=== PATIENT | male | born 1940 | race Caucasian/White ===

== ENCOUNTER 2018-07-31 10:43 | Emergency (ER) | payer MEDICARE, BC ==
[~2018-07-31] VITALS: Ht 188 cm; Wt 103.0 kg
[2018-07-31] MEDS ORDERED: aspirin 81mg tab.chew PO ONE (11:20)
[2018-07-31 12:10] LABS: BASOPHILS % (AUTO) 0.3 % (0-1); EOSINOPHILS # (AUTO) 0.2 X10'3 (0-0.9); EOSINOPHILS % (AUTO) 1.8 % (0-6); HEMATOCRIT 42.7 % (42.0-52.0); HEMOGLOBIN 14.8 g/dl (14.0-17.9); LYMPHOCYTES # (AUTO) 1.5 X10'3 (1.1-4.8); LYMPHOCYTES % (AUTO) 16.8 % (21-51); MEAN CORPUSCULAR HEMOGLOBIN 31.7 PG (27.0-31.0); MEAN CORPUSCULAR HGB CONC 34.6 g/dL (33.0-36.5); MEAN CORPUSCULAR VOLUME 91.8 FL (78-98); MEAN PLATELET VOLUME 9.2 FL (7.4-10.4); MONOCYTES # (AUTO) 0.8 X10'3 (0-0.9); MONOCYTES % (AUTO) 8.7 % (2-12); NEUTROPHILS # (AUTO) 6.4 X10'3 (1.8-7.7); NEUTROPHILS % (AUTO) 72.4 % (42-75); PLATELET COUNT 172 X10'3 (140-440); RED BLOOD COUNT 4.65 X10'6 (4.70-6.10); RED CELL DISTRIBUTION WIDTH 13.2 % (11.5-14.5); WHITE BLOOD COUNT 8.8 X10'3 (4.5-11.0)
[2018-07-31 12:29] LABS: ALANINE AMINOTRANSFERASE 31 U/L (12-78); ALBUMIN 3.7 G/DL (3.4-5.0); ALBUMIN/GLOBULIN RATIO 1.2 (1.1-1.5); ALKALINE PHOSPHATASE 64 IU/L (46-116); ANION GAP 7 (8-16); ASPARTATE AMINO TRANSFERASE 26 U/L (10-37); BILIRUBIN,TOTAL 0.8 MG/DL (0.1-1.0); BLOOD UREA NITROGEN 39 MG/DL (7-18); BUN/CREATININE RATIO 17.1 (5.4-32.0); CALCIUM 9.9 MG/DL (8.5-10.1); CHLORIDE 103 MMOL/L (99-107); CREATININE 2.28 MG/DL (0.60-1.10); GLUCOSE 145 MG/DL (70-104); POTASSIUM 4.3 MMOL/L (3.5-5.1); SODIUM 140 MMOL/L (135-145); TOTAL CARBON DIOXIDE 29.6 MMOL/L (24-32); TOTAL PROTEIN 6.8 G/DL (6.4-8.2); eGFR 28 ML/MIN
[2018-07-31 12:35] LABS: MAGNESIUM 1.8 MG/DL (1.5-2.4)
[2018-07-31] MEDS ORDERED: diltiazem 5mg/ml 5ml inj. IV ONE (15:25)
[2018-07-31] MEDS ORDERED: nitroGLYCERIN 0.2mg/hour patch TD ONE (15:50)
[2018-07-31] MEDS ORDERED: HYDR12.5 PO (16:55)
[2018-07-31] MEDS ORDERED: GABA-532 PO (16:55)
[2018-07-31] MEDS ORDERED: PRAV40TA3 PO (16:55)
[2018-07-31] MEDS ORDERED: IRBE300T19 PO (16:55)
[2018-07-31] MEDS ORDERED: MONT10TA24 PO (16:55)
[2018-07-31] MEDS ORDERED: SOTA120T PO (16:55)
[2018-07-31] MEDS ORDERED: DOXA1TAB2 PO (16:55)
[2018-07-31] MEDS ORDERED: mag hydrox/Alum hydrox/simeth 30ml oral suspension PO PRN (17:45)
[2018-07-31] MEDS ORDERED: potassium Cl 20 mEq SR tablet PO PRN ×2 (17:45)
[2018-07-31] MEDS ORDERED: potassium Cl 40MEQ/NS 500ml 500 ML IV PRN ×2 (17:45)
[2018-07-31] MEDS ORDERED: ondansetron/PF 4mg/2ml inj IV PRN (17:45)
[2018-07-31] MEDS ORDERED: acetaminophen 325mg tablet PO PRN (17:45)
[2018-07-31] MEDS ORDERED: magnesium 4gm in 100ml NS 100 ML IV PRN (17:45)
[2018-07-31] MEDS ORDERED: magnesium 2GM in 50ml NS 50 ML IV PRN (17:45)
[2018-07-31] MEDS ORDERED: magnesium Cl slow-release 64mg tablet PO PRN (17:45)
[2018-07-31] MEDS ORDERED: gabapentin 300mg capsule PO PRN (17:45)
[2018-07-31] MEDS: montelukast 10mg tablet PO SCH (17:45)
[2018-07-31] MEDS ORDERED: magnesium hydroxide 30ml (MOM) UD suspension PO PRN (17:45)
[2018-07-31] MEDS ORDERED: MESSAGE TO PHARMACY PO ONE (18:25)
[2018-07-31] MEDS ORDERED: dextrose 50%-water 50ml dispensing syringe IV PRN ×2 (18:25)
[2018-07-31] MEDS ORDERED: glucagon, human recombinant 1mg kit SUBCUT PRN (18:25)
[2018-07-31] MEDS ORDERED: insulin Lispro (HumaLOG) vial - multi-dose SQ SCH (18:25)
[2018-07-31] MEDS ORDERED: dextrose ORAL solution 15 GM/59 ML bottle PO PRN ×2 (18:25)
[2018-07-31] MEDS ORDERED: iohexol 350MG/ML 100ml bottle IV ONE (18:52)
[2018-07-31 19:21] LABS: HEMOGLOBIN A1C 7.1 % (4.5-6.2)
[2018-07-31] MEDS: normal saline 1000ml 1,000 ML IV SCH (19:24)
[2018-07-31] MEDS ORDERED: heparin, porcine 5000 units/ml vial SQ SCH (20:00)
[2018-07-31] MEDS: sotalol 80mg tablet PO SCH (20:42)
[2018-07-31] MEDS: doxazosin mesylate 2mg tablet PO SCH (20:42)
[2018-07-31] MEDS ORDERED: insulin glargine (Lantus) pen - multi-dose SQ SCH (21:00)
[2018-07-31] MEDS ORDERED: dabigatran 150mg capsule PO ONE (21:15)
[2018-08-01] MEDS: normal saline 1000ml 1,000 ML IV SCH (04:25)
[2018-08-01] MEDS: montelukast 10mg tablet PO SCH (08:00)
[2018-08-01] MEDS ORDERED: dabigatran 150mg capsule PO ONE (08:00)
[2018-08-01] MEDS ORDERED: K and/or MAG REPLACEMENT MC SCH (08:00)
[2018-08-01] MEDS ORDERED: pravastatin 40mg tablet PO SCH (08:00)
[2018-08-01 08:45] LABS: BASOPHILS % (AUTO) 0.5 % (0-1); EOSINOPHILS # (AUTO) 0.1 X10'3 (0-0.9); EOSINOPHILS % (AUTO) 1.5 % (0-6); HEMATOCRIT 43.5 % (42.0-52.0); HEMOGLOBIN 14.3 g/dl (14.0-17.9); LYMPHOCYTES # (AUTO) 1.3 X10'3 (1.1-4.8); LYMPHOCYTES % (AUTO) 15.4 % (21-51); MEAN CORPUSCULAR HEMOGLOBIN 30.5 PG (27.0-31.0); MEAN CORPUSCULAR HGB CONC 32.8 g/dL (33.0-36.5); MEAN CORPUSCULAR VOLUME 93.1 FL (78-98); MEAN PLATELET VOLUME 9.3 FL (7.4-10.4); MONOCYTES # (AUTO) 0.7 X10'3 (0-0.9); MONOCYTES % (AUTO) 7.7 % (2-12); NEUTROPHILS # (AUTO) 6.6 X10'3 (1.8-7.7); NEUTROPHILS % (AUTO) 74.9 % (42-75); PLATELET COUNT 171 X10'3 (140-440); RED BLOOD COUNT 4.68 X10'6 (4.70-6.10); RED CELL DISTRIBUTION WIDTH 12.3 % (11.5-14.5); WHITE BLOOD COUNT 8.7 X10'3 (4.5-11.0)
[2018-08-01 09:11] LABS: ALANINE AMINOTRANSFERASE 30 U/L (12-78); ALBUMIN 3.5 G/DL (3.4-5.0); ALBUMIN/GLOBULIN RATIO 1.1 (1.1-1.5); ALKALINE PHOSPHATASE 60 IU/L (46-116); ANION GAP 10 (8-16); ASPARTATE AMINO TRANSFERASE 22 U/L (10-37); BILIRUBIN,TOTAL 0.7 MG/DL (0.1-1.0); BLOOD UREA NITROGEN 39 MG/DL (7-18); BUN/CREATININE RATIO 19.2 (5.4-32.0); CALCIUM 9.2 MG/DL (8.5-10.1); CHLORIDE 102 MMOL/L (99-107); CHOL/HDL RATIO 4.1 (0.00-4.99); CHOLESTEROL 119 MG/DL (0-200); CREATININE 2.03 MG/DL (0.60-1.10); GLUCOSE 151 MG/DL (70-104); HDL CHOLESTEROL 29 MG/DL (35-60); LDL CHOLESTEROL 71 MG/DL (50-100); MAGNESIUM 1.7 MG/DL (1.5-2.4); POTASSIUM 4.2 MMOL/L (3.5-5.1); SODIUM 137 MMOL/L (135-145); TOTAL CARBON DIOXIDE 25.3 MMOL/L (24-32); TOTAL PROTEIN 6.6 G/DL (6.4-8.2); TRIGLYCERIDES 175 MG/DL (20-135); eGFR 32 ML/MIN
--- NOTE | 2018-08-01 09:26 | NUR ---
CALLED TO GIVE REPORT INFORMED BY SANTHOSH WEI TO HOLD ON THIS PT PER NSG SUP
[2018-08-01] MEDS: sotalol 80mg tablet PO SCH (10:17)
[2018-08-01] MEDS: doxazosin mesylate 2mg tablet PO SCH (10:18)
[2018-08-01 10:56] VITALS: BP 115/76
--- NOTE | 2018-08-01 13:12 | NUR ---
PT MOVED FROM BED 10 TO RAP WAITING ROOM ZANE STATES PT TO BE DISCHARGED.
== END 2018-08-01 14:10 | disposition home or self-care (01) ==
LOC: ER 10:44 → ED HOLD 17:41 → UNDOADMIN 17:41 → CANBEDREQ 08-04 19:54
DX: R07.89 Other chest pain (principal); I48.0 Paroxysmal atrial fibrillation; M54.6 Pain in thoracic spine; R42 Dizziness and giddiness; I95.89 Other hypotension; I10 Essential (primary) hypertension; E11.9 Type 2 diabetes mellitus without complications; Z98.890 Other specified postprocedural states; Z85.46 Personal history of malignant neoplasm of prostate; Z79.899 Other long term (current) drug therapy
CPT/HCPCS: 36415; 71045; 71275; 74174; 80053; 80061; 82948; 83036; 83735; 83880; 84484; 85025; 93005; 93306; 96361; 96374; 99285; J7030; Q9967; G0378; J1815; J3490

== ENCOUNTER 2023-01-10 23:56 | Emergency (ER) | payer MEDICARE, BC ==
[~2023-01-10] VITALS: Ht 182.9 cm; Wt 95.0 kg
[~2023-01-10 23:56] MED LIST: DOXA1TAB2 PO; GABA-532 PO; IRBE300T18 PO; PRAV40TA3 PO; SOTA120T PO
[2023-01-11 00:12] VITALS: BP 167/78; PULSE 71; TEMP 96; O2SAT 96
[2023-01-11 00:46] VITALS: RESP 16
== END 2023-01-11 01:42 | disposition home or self-care (01) ==
LOC: ER 23:56
DX: E11.65 Type 2 diabetes mellitus with hyperglycemia (principal); I10 Essential (primary) hypertension; Z79.899 Other long term (current) drug therapy
CPT/HCPCS: 82948; 99282

== ENCOUNTER 2023-03-04 23:50 | Inpatient (IN) | payer MEDICARE, BC ==
[~2023-03-04] VITALS: Ht 188 cm; Wt 88.6 kg
[2023-03-05] VITALS (8 sets, daily range): BP systolic 96–136; BP diastolic 53–86; PULSE 76–99; RESP 16–20; TEMP 97.8–98.4; O2SAT 95–97
[2023-03-05 01:50] LABS: BASOPHILS # (AUTO) 0.1 X10'3 (0-0.2); BASOPHILS % (AUTO) 0.8 % (0-1); EOSINOPHILS # (AUTO) 0.1 X10'3 (0-0.9); EOSINOPHILS % (AUTO) 1.5 % (0-6); HEMATOCRIT 36.2 % (42.0-52.0); HEMOGLOBIN 11.9 g/dl (14.0-17.9); LYMPHOCYTES # (AUTO) 1.2 X10'3 (1.1-4.8); LYMPHOCYTES % (AUTO) 14.2 % (21-51); MEAN CORPUSCULAR HEMOGLOBIN 31.1 PG (27.0-31.0); MEAN CORPUSCULAR HGB CONC 32.8 g/dL (33.0-36.5); MEAN CORPUSCULAR VOLUME 94.6 FL (78-98); MEAN PLATELET VOLUME 8.6 FL (7.4-10.4); MONOCYTES # (AUTO) 0.7 X10'3 (0-0.9); MONOCYTES % (AUTO) 8.4 % (2-12); NEUTROPHILS # (AUTO) 6.4 X10'3 (1.8-7.7); NEUTROPHILS % (AUTO) 75.1 % (42-75); PLATELET COUNT 159 X10'3 (140-440); RED BLOOD COUNT 3.83 X10'6 (4.70-6.10); WHITE BLOOD COUNT 8.6 X10'3 (4.5-11.0)
[2023-03-05 01:58] LABS: ALANINE AMINOTRANSFERASE 26 U/L (12-78); ALBUMIN 3.3 G/DL (3.4-5.0); ALBUMIN/GLOBULIN RATIO 1.3 (1.1-1.5); ALKALINE PHOSPHATASE 62 IU/L (46-116); ANION GAP 10 (8-16); ASPARTATE AMINO TRANSFERASE 16 U/L (10-37); BILIRUBIN,TOTAL 0.3 MG/DL (0.1-1.0); BLOOD UREA NITROGEN 41 MG/DL (7-18); BUN/CREATININE RATIO 20.3 (10.0-20.0); CALCIUM 9.3 MG/DL (8.5-10.1); CHLORIDE 106 MMOL/L (99-107); CREATININE 2.02 MG/DL (0.60-1.10); GLUCOSE 201 MG/DL (70-104); POTASSIUM 4.7 MMOL/L (3.5-5.1); SODIUM 140 MMOL/L (135-145); TOTAL CARBON DIOXIDE 24.5 MMOL/L (24-32); TOTAL PROTEIN 5.8 G/DL (6.4-8.2); eCRCL 34 ML/MIN; eGFR 32 ML/MIN
[2023-03-05] MEDS ORDERED: KCentra-PCC 500 unit/20mL vial 0 ML IV ONE (02:15)
[2023-03-05] MEDS ORDERED: KCENTRA PCC 500 UNIT/20 ML IV ONE (02:30)
[2023-03-05] MEDS ORDERED: normal saline 1000ML IV soln IVB ONE (03:30)
[2023-03-05] MEDS ORDERED: bisacodyl 10mg suppository rectal RC PRN (04:45)
[2023-03-05] MEDS ORDERED: ondansetron 4mg rapidly disintigrating tab PO PRN (04:45)
[2023-03-05] MEDS ORDERED: magnesium hydroxide 30ml (MOM) UD suspension PO PRN (04:45)
[2023-03-05] MEDS ORDERED: acetaminophen 325mg tablet PO PRN ×2 (04:45)
[2023-03-05] MEDS ORDERED: ondansetron/PF 4mg/2ml inj IV PRN (04:45)
[2023-03-05] MEDS ORDERED: HYDROcodone/acetaminophen 5mg/325mg tablet PO PRN (04:45)
[2023-03-05] MEDS ORDERED: acetaminophen 650mg rectal suppository RC PRN (04:45)
[2023-03-05] MEDS ORDERED: morphine 2 MG/ML inj. syringe IV PRN (04:45)
[2023-03-05] MEDS ORDERED: diphenhydrAMINE 50 mg/ml inj IV PRN (04:45)
[2023-03-05] MEDS ORDERED: diphenhydrAMINE 25mg capsule PO PRN (04:45)
[2023-03-05] MEDS ORDERED: mag hydrox/Alum hydrox/simeth 30ml oral suspension PO PRN (04:45)
[2023-03-05] MEDS ORDERED: MESSAGE TO PHARMACY PO ONE (04:50)
[2023-03-05] MEDS ORDERED: tranexamic acid inj. 1,000 MG in normal saline 100ml IV soln 100 ML IV ONE (04:50)
[2023-03-05] MEDS ORDERED: dextrose 50%-water 50ml dispensing syringe IV PRN ×2 (04:50)
[2023-03-05] MEDS ORDERED: DEXTROSE 15 GM of carb/4 tabs (each vial/BOTTLE has 4 tablets) PO PRN ×2 (04:50)
[2023-03-05] MEDS ORDERED: glucagon, human recombinant 1mg kit SUBCUT PRN (04:50)
[2023-03-05] MEDS ORDERED: ringers solution, lacted 1,000 ML IV ONE (04:50)
[2023-03-05] MEDS ORDERED: insulin Lispro (HumaLOG) vial - multi-dose SQ SCH (04:50)
[2023-03-05 05:09] LABS: OCCULT BLOOD STOOL POSITIVE (Neg)
[2023-03-05 05:11] LABS: APTT 27 SECONDS (22-32)
[2023-03-05 05:13] LABS: HEMOGLOBIN A1C 6.5 % (4.5-6.2)
[2023-03-05 05:23] LABS: MAGNESIUM 1.8 MG/DL (1.5-2.4); PHOSPHORUS 3.1 MG/DL (2.3-4.5); PRO BRAIN NATRIURETIC PEPTIDE 73 PG/ML (0-450)
[2023-03-05] MEDS ORDERED: tranexamic acid inj. 1,000 MG in normal saline 100ml IV soln 90 ML IV ONE (05:38)
[2023-03-05] MEDS: pantoprazole 40MG/NS 100ML BAG 100 ML IV SCH ×5 (07:54→22:03)
[2023-03-05] MEDS: docusate sod 100mg capsule PO SCH ×2 (07:54→20:00)
--- NOTE | 2023-03-05 08:08 | NUR ---
Primary RN relieved for break.
--- NOTE | 2023-03-05 09:33 | NUR ---
paged dr boyer at this time to clarify the orders .
--- NOTE | 2023-03-05 09:34 | NUR ---
spoke to dr boyer regarding pt concern about contacting caustic preparer for recent visit as per md its not needed,clarified the diet orders ,as per md keep npo and also correct the bld sugar with correctional tool.will follow the orders.
--- NOTE | 2023-03-05 10:49 | NUR ---
was going to correct the pt b.s checked the bld sugar with glucometer b.s 112.no insulin needed.
--- NOTE | 2023-03-05 13:06 | NUR ---
Assumed care of patient, updated plan of care with family, vital signs stable at this time and denies additional needs.
[2023-03-05] MEDS ORDERED: MONT-40 PO (13:53)
[2023-03-05] MEDS ORDERED: DULA1.5P SQ (13:53)
[2023-03-05] MEDS ORDERED: CARV3.1244 PO (13:53)
[2023-03-05] MEDS ORDERED: KETO120S5 TOP (13:53)
[2023-03-05] MEDS ORDERED: IRBE75TA8 PO (13:53)
[2023-03-05] MEDS ORDERED: AMI200T PO (13:53)
[2023-03-05] MEDS ORDERED: APIX5TAB3 PO (13:53)
[2023-03-05] MEDS ORDERED: GABA300C PO (13:53)
[2023-03-05] MEDS ORDERED: ROSU10TA28 PO (13:53)
[2023-03-05] MEDS ORDERED: ASPI-611 PO (13:54)
--- NOTE | 2023-03-05 15:17 | NUR ---
Patient in room PCU 3026. I have received report from Sharita WEI and had the opportunity to ask questions and awaiting patients arrival
--- NOTE | 2023-03-05 15:43 | NUR ---
DM consult: Per EMR pt with T2DM, well controlled with A1c 6.5%, DM education and CHO controlled diet not warranted. Will continue to follow. Addendum: 03/05/23 at [address] Amended: Links added.
--- NOTE | 2023-03-05 15:45 | NUR ---
Received patient to floor in stable condition. No more bloody stools observed at this time. Orientated to room. Spouse present.
[2023-03-05] MEDS ORDERED: metroNIDAZOLE-Flagyl 500mg/NS 100 ML IV SCH (17:08)
[2023-03-05] MEDS ORDERED: ciprofloxacin/D5W 200mg/100mL 100 ML IV SCH (17:12)
--- NOTE | 2023-03-05 18:24 | NUR ---
patient commenced on heart healthy diet . No c/o abdominal pain, states just feels uncomfortable . Report given to Barbi WEI
--- NOTE | 2023-03-05 18:30 | NUR ---
Patient in room PCU 3026. I have received report from SANJUANA Lerner and had the opportunity to ask questions and assume patient care.
[2023-03-05] MEDS: carVEDilol 3.125mg tablet PO SCH ×2 (20:00→22:00)
[2023-03-05] MEDS: doxazosin mesylate 2mg tablet PO SCH (20:00)
[2023-03-05] MEDS: metroNIDAZOLE-Flagyl 500mg/NS 100 ML IV SCH (20:04)
[2023-03-05] MEDS ORDERED: gabapentin 300mg capsule PO SCH (21:00)
[2023-03-05] MEDS ORDERED: atorvastatin 20mg tablet PO SCH (21:00)
[2023-03-05] MEDS ORDERED: temazepam 15mg capsule PO PRN (21:00)
[2023-03-06 02:00] VITALS: BP 122/70; PULSE 86; RESP 16; TEMP 97.3; O2SAT 95
[2023-03-06] MEDS: metroNIDAZOLE-Flagyl 500mg/NS 100 ML IV SCH ×2 (04:01→12:00)
[2023-03-06 06:00] VITALS: BP 161/77; PULSE 85; RESP 12; TEMP 97.8; O2SAT 98
[2023-03-06] MEDS: pantoprazole 40MG/NS 100ML BAG 100 ML IV SCH ×2 (06:03→11:00)
--- NOTE | 2023-03-06 06:29 | NUR ---
Problems reprioritized. Patient report given, questions answered & plan of care reviewed with SANJUANA Marks.
--- NOTE | 2023-03-06 06:54 | NUR ---
Patient in room PCU 3026. I have received report from SANJUANA Landon and had the opportunity to ask questions and assume patient care.
[2023-03-06 07:56] VITALS: RESP 19; O2SAT 98
[2023-03-06] MEDS ORDERED: losartan 25mg tablet PO SCH (08:00)
[2023-03-06] MEDS ORDERED: montelukast 10mg tablet PO SCH (08:00)
[2023-03-06] MEDS ORDERED: ketoconazole (Nizoral) shampoo TP SCH (08:00)
[2023-03-06] MEDS: doxazosin mesylate 2mg tablet PO SCH (08:00)
[2023-03-06] MEDS ORDERED: amiodarone 200mg tablet PO SCH (08:00)
[2023-03-06] MEDS: docusate sod 100mg capsule PO SCH (08:01)
[2023-03-06] MEDS: carVEDilol 3.125mg tablet PO SCH (08:02)
[2023-03-06 08:22] LABS: BASOPHILS # (AUTO) 0.1 X10'3 (0-0.2); BASOPHILS % (AUTO) 0.7 % (0-1); EOSINOPHILS # (AUTO) 0.2 X10'3 (0-0.9); EOSINOPHILS % (AUTO) 1.9 % (0-6); HEMATOCRIT 36.2 % (42.0-52.0); HEMOGLOBIN 12.1 g/dl (14.0-17.9); LYMPHOCYTES # (AUTO) 1.6 X10'3 (1.1-4.8); MEAN CORPUSCULAR HEMOGLOBIN 31.6 PG (27.0-31.0); MEAN CORPUSCULAR HGB CONC 33.3 g/dL (33.0-36.5); MEAN CORPUSCULAR VOLUME 94.8 FL (78-98); MEAN PLATELET VOLUME 8.9 FL (7.4-10.4); MONOCYTES # (AUTO) 0.8 X10'3 (0-0.9); MONOCYTES % (AUTO) 8.8 % (2-12); NEUTROPHILS # (AUTO) 6.3 X10'3 (1.8-7.7); NEUTROPHILS % (AUTO) 70.6 % (42-75); PLATELET COUNT 158 X10'3 (140-440); RED BLOOD COUNT 3.82 X10'6 (4.70-6.10); RED CELL DISTRIBUTION WIDTH 15.6 % (11.5-14.5)
[2023-03-06 08:49] LABS: ALANINE AMINOTRANSFERASE 27 U/L (12-78); ALBUMIN 3.4 G/DL (3.4-5.0); ALBUMIN/GLOBULIN RATIO 1.3 (1.1-1.5); ALKALINE PHOSPHATASE 59 IU/L (46-116); ANION GAP 9 (8-16); ASPARTATE AMINO TRANSFERASE 15 U/L (10-37); BILIRUBIN,TOTAL 0.6 MG/DL (0.1-1.0); BLOOD UREA NITROGEN 30 MG/DL (7-18); BUN/CREATININE RATIO 17.6 (10.0-20.0); CALCIUM 9.6 MG/DL (8.5-10.1); CHLORIDE 107 MMOL/L (99-107); CHOL/HDL RATIO 3.3 (0.00-4.99); CHOLESTEROL 121 MG/DL (0-200); GLUCOSE 120 MG/DL (70-104); HDL CHOLESTEROL 37 MG/DL (35-60); LDL CHOLESTEROL 60 MG/DL (50-100); POTASSIUM 4.8 MMOL/L (3.5-5.1); SODIUM 141 MMOL/L (135-145); TOTAL CARBON DIOXIDE 24.6 MMOL/L (24-32); TRIGLYCERIDES 137 MG/DL (20-135); eCRCL 40 ML/MIN; eGFR 39 ML/MIN
[2023-03-06] MEDS ORDERED: METR-159 PO (09:54)
[2023-03-06] MEDS ORDERED: CIPR-202 PO ×2 (09:54)
[2023-03-06] MEDS ORDERED: SACC250C PO (09:54)
[2023-03-06] MEDS ORDERED: CIPR-429 PO (09:59)
[2023-03-06 11:00] VITALS: BP 100/62; PULSE 85; RESP 19; TEMP 98.2; O2SAT 98
--- NOTE | 2023-03-06 12:57 | NUR ---
Patient alert and oriented in no apparent acute distress. Patient spouse at bedside. Discussed with patient and spouse discharge instructions and new prescriptions. Both verbalized understanding of teachings. Patient dc'd with all personal belongings accompanied by x1 auxilary staff and spouse. Dr. Ardon in to see patient to speak about when to resume eliquis prior to dc.
== END 2023-03-06 13:25 | disposition home or self-care (01) | DRG 377 ==
LOC: ER 23:51 → ED HOLD 03-05 04:48 → PCU 3S 03-05 15:13
PROVIDERS: ADMIT Family Medicine; ATTEND Family Medicine
PROC: 30233N1 Transfusion of Nonautologous Red Blood Cells into Peripheral Vein, Percutaneous Approach (ICD-10-PCS; principal; 2023-03-05)
DX: K57.91 Diverticulosis of intestine, part unspecified, without perforation or abscess with bleeding (principal); N17.0 Acute kidney failure with tubular necrosis; I13.0 Hypertensive heart and chronic kidney disease with heart failure and stage 1 through stage 4 chronic kidney disease, or unspecified chronic kidney disease; I50.32 Chronic diastolic (congestive) heart failure; E11.22 Type 2 diabetes mellitus with diabetic chronic kidney disease; E11.42 Type 2 diabetes mellitus with diabetic polyneuropathy; E11.65 Type 2 diabetes mellitus with hyperglycemia; G89.4 Chronic pain syndrome; I25.10 Atherosclerotic heart disease of native coronary artery without angina pectoris; E78.5 Hyperlipidemia, unspecified; I48.91 Unspecified atrial fibrillation; N18.9 Chronic kidney disease, unspecified; Z79.01 Long term (current) use of anticoagulants; Z79.82 Long term (current) use of aspirin; Z79.84 Long term (current) use of oral hypoglycemic drugs; Z85.46 Personal history of malignant neoplasm of prostate
CPT/HCPCS: 36415; 36430; 74176; 80053; 80061; 82272; 82948; 83036; 83605; 83735; 83880; 84100; 84484; 85025; 85610; 85730; 86885; 86900; 86901; 86920; 87081; 93005; 96361; 96374; 99291; C9113; G0378; J0744; J3490; J7030; J7040; J7120; J7168; P9016

== ENCOUNTER 2023-07-18 23:52 | Emergency (ER) | payer MEDICARE, BC ==
[~2023-07-18] VITALS: Ht 188 cm; Wt 88.2 kg
[~2023-07-18 23:52] MED LIST changes: +AMI200T PO; +APIX5TAB3 PO; +ASPI-611 PO; +CARV3.1244 PO; +CIPR-429 PO; +DULA1.5P SQ; -GABA-532 PO; +GABA300C PO; -IRBE300T18 PO; +IRBE75TA15 PO; +KETO120S5 TOP; +METR-159 PO; +MONT-40 PO; -PRAV40TA3 PO; +ROSU10TA28 PO; +SACC250C PO; -SOTA120T PO
[2023-07-19 00:06] VITALS: TEMP 98.7
[2023-07-19 00:59] LABS: BILIRUBIN,URINE NEGATIVE (Neg); CLARITY,URINE SLIGHTLY CLOUDY (Clear); COLOR,URINE YELLOW (Yellow); GLUCOSE, URINE NEGATIVE (Neg); KETONES,URINE NEGATIVE (Neg); LEUKOCYTE ESTERASE ,URINE MODERATE (Neg); NITRITES, URINE NEGATIVE (Neg); OCCULT BLOOD,URINE SMALL (Neg); PROTEIN,URINE NEGATIVE (Neg); UROBILINOGEN,URINE 0.2 E.U/dL (0.2-1.0)
[2023-07-19 01:01] LABS: UA COLLECTION TYPE NON-SPECIFIED
[2023-07-19 01:07] LABS: BACTERIA,URINE 2+ /HPF (Neg)
[2023-07-19 01:08] LABS: SQUAMOUS EPITHELIAL CELL,UR FEW /LPF (FEW)
[2023-07-19] MEDS ORDERED: CEPH-585 PO (01:29)
[2023-07-19] MEDS ORDERED: CefTRIAXone 1000mg IM Kit (w/lidocaine diluent) IM ONE (01:30)
[2023-07-19] MEDS ORDERED: PHEN-786 PO (01:58)
[2023-07-19] MEDS ORDERED: phenazopyridine 100mg tablet PO ONE (02:00)
[2023-07-19 02:32] VITALS: BP 129/75; PULSE 76; RESP 16; O2SAT 95
== END 2023-07-19 02:37 | disposition home or self-care (01) ==
LOC: ER 23:53
DX: N39.0 Urinary tract infection, site not specified (principal); I11.0 Hypertensive heart disease with heart failure; Z79.899 Other long term (current) drug therapy
CPT/HCPCS: 81001; 87077; 87088; 87186; 96372; 99283; J0696

== ENCOUNTER 2023-12-11 11:59 | Emergency (ER) | payer MEDICARE, BC ==
[~2023-12-11] VITALS: Ht 188 cm; Wt 86.0 kg
[~2023-12-11 11:59] MED LIST changes: +PHEN-786 PO
[2023-12-11 12:04] VITALS: TEMP 98
[2023-12-11 12:58] LABS: BASOPHILS # (AUTO) 0.1 X10'3 (0-0.2); BASOPHILS % (AUTO) 0.7 % (0-1); EOSINOPHILS # (AUTO) 0.1 X10'3 (0-0.9); EOSINOPHILS % (AUTO) 1.1 % (0-6); HEMATOCRIT 42.3 % (42.0-52.0); HEMOGLOBIN 13.9 g/dl (14.0-17.9); LYMPHOCYTES # (AUTO) 0.9 X10'3 (1.1-4.8); LYMPHOCYTES % (AUTO) 11.2 % (21-51); MEAN CORPUSCULAR HEMOGLOBIN 30.5 PG (27.0-31.0); MEAN CORPUSCULAR HGB CONC 32.9 g/dL (33.0-36.5); MEAN CORPUSCULAR VOLUME 92.8 FL (78-98); MEAN PLATELET VOLUME 8.8 FL (7.4-10.4); MONOCYTES # (AUTO) 0.7 X10'3 (0-0.9); MONOCYTES % (AUTO) 8.8 % (2-12); NEUTROPHILS # (AUTO) 6.5 X10'3 (1.8-7.7); NEUTROPHILS % (AUTO) 78.2 % (42-75); PLATELET COUNT 172 X10'3 (140-440); RED BLOOD COUNT 4.56 X10'6 (4.70-6.10); RED CELL DISTRIBUTION WIDTH 15.1 % (11.5-14.5); WHITE BLOOD COUNT 8.3 X10'3 (4.5-11.0)
[2023-12-11 13:21] LABS: ALANINE AMINOTRANSFERASE 32 U/L (12-78); ALBUMIN 3.3 G/DL (3.4-5.0); ALKALINE PHOSPHATASE 72 IU/L (46-116); ANION GAP 6 (8-16); ASPARTATE AMINO TRANSFERASE 14 U/L (10-37); BILIRUBIN,TOTAL 0.5 MG/DL (0.1-1.0); BLOOD UREA NITROGEN 20 MG/DL (7-18); BUN/CREATININE RATIO 13.1 (10.0-20.0); CALCIUM 9.3 MG/DL (8.5-10.1); CHLORIDE 105 MMOL/L (99-107); CREATININE 1.53 MG/DL (0.60-1.10); GLUCOSE 118 MG/DL (70-104); LIPASE 40 U/L (16-77); POTASSIUM 4.3 MMOL/L (3.5-5.1); SODIUM 139 MMOL/L (135-145); TOTAL CARBON DIOXIDE 27.6 MMOL/L (24-32); TOTAL PROTEIN 6.5 G/DL (6.4-8.2); eCRCL 44 ML/MIN; eGFR 44 ML/MIN
[2023-12-11 14:15] VITALS: BP 109/66; PULSE 61; RESP 16; O2SAT 96
[2023-12-11] MEDS ORDERED: METR-159 PO (14:24)
[2023-12-11] MEDS ORDERED: LEVO-65 PO (14:24)
[2023-12-11 14:30] LABS: BILIRUBIN,URINE NEGATIVE (Neg); CLARITY,URINE CLEAR (Clear); COLOR,URINE STRAW (Yellow); GLUCOSE, URINE NEGATIVE (Neg); KETONES,URINE NEGATIVE (Neg); LEUKOCYTE ESTERASE ,URINE NEGATIVE (Neg); NITRITES, URINE NEGATIVE (Neg); OCCULT BLOOD,URINE TRACE-INTACT (Neg); PH,URINE 6.5 (4.8-8.0); PROTEIN,URINE NEGATIVE (Neg); UROBILINOGEN,URINE 0.2 E.U/dL (0.2-1.0)
[2023-12-11 14:31] LABS: UA COLLECTION TYPE VOIDED
[2023-12-11 14:40] LABS: RBC,URINE NONE SEEN /HPF (0-2); WBC,URINE NONE SEEN /HPF (0-4)
[2023-12-11 14:41] LABS: BACTERIA,URINE NONE SEEN /HPF (Neg); MUCUS STRANDS NONE SEEN /LPF (Neg); SQUAMOUS EPITHELIAL CELL,UR FEW /LPF (FEW)
== END 2023-12-11 14:37 | disposition home or self-care (01) ==
LOC: ER 11:59
DX: K57.32 Diverticulitis of large intestine without perforation or abscess without bleeding (principal); I48.91 Unspecified atrial fibrillation; I10 Essential (primary) hypertension; E11.9 Type 2 diabetes mellitus without complications; Z79.82 Long term (current) use of aspirin; Z79.2 Long term (current) use of antibiotics; Z79.899 Other long term (current) drug therapy; Z98.890 Other specified postprocedural states; Z85.9 Personal history of malignant neoplasm, unspecified
CPT/HCPCS: 36415; 74176; 80053; 81001; 83690; 85025; 99284

== ENCOUNTER 2024-03-17 13:32 | Emergency (ER) | payer MEDICARE, BC ==
[~2024-03-17] VITALS: Ht 188 cm; Wt 84.0 kg
[~2024-03-17 13:32] MED LIST changes: -ROSU10TA28 PO; +ROSU10TA72 PO
[2024-03-17 13:33] VITALS: BP 150/61; PULSE 63; RESP 16; TEMP 98.2; O2SAT 95
[2024-03-17 14:13] LABS: BASOPHILS # (AUTO) 0.1 X10'3 (0-0.2); BASOPHILS % (AUTO) 0.5 % (0-1); EOSINOPHILS # (AUTO) 0.1 X10'3 (0-0.9); EOSINOPHILS % (AUTO) 0.8 % (0-6); HEMOGLOBIN 14.5 g/dl (14.0-17.9); LYMPHOCYTES # (AUTO) 1.2 X10'3 (1.1-4.8); LYMPHOCYTES % (AUTO) 11.7 % (21-51); MEAN CORPUSCULAR HEMOGLOBIN 31.2 PG (27.0-31.0); MEAN CORPUSCULAR HGB CONC 32.8 g/dL (33.0-36.5); MEAN CORPUSCULAR VOLUME 95.1 FL (78-98); MEAN PLATELET VOLUME 9.2 FL (7.4-10.4); MONOCYTES # (AUTO) 0.6 X10'3 (0-0.9); MONOCYTES % (AUTO) 6.5 % (2-12); NEUTROPHILS % (AUTO) 80.5 % (42-75); PLATELET COUNT 172 X10'3 (140-440); RED BLOOD COUNT 4.62 X10'6 (4.70-6.10); RED CELL DISTRIBUTION WIDTH 14.8 % (11.5-14.5); WHITE BLOOD COUNT 9.9 X10'3 (4.5-11.0)
[2024-03-17 14:27] LABS: ALANINE AMINOTRANSFERASE 25 U/L (12-78); ALBUMIN 3.5 G/DL (3.4-5.0); ALBUMIN/GLOBULIN RATIO 1.2 (1.1-1.5); ALKALINE PHOSPHATASE 70 IU/L (46-116); ANION GAP 5 (8-16); ASPARTATE AMINO TRANSFERASE 14 U/L (10-37); BILIRUBIN,TOTAL 0.5 MG/DL (0.1-1.0); BLOOD UREA NITROGEN 24 MG/DL (7-18); BUN/CREATININE RATIO 15.1 (10.0-20.0); CALCIUM 9.2 MG/DL (8.5-10.1); CHLORIDE 103 MMOL/L (99-107); CREATININE 1.59 MG/DL (0.60-1.10); GLUCOSE 181 MG/DL (70-104); LIPASE 45 U/L (16-77); POTASSIUM 4.6 MMOL/L (3.5-5.1); SODIUM 138 MMOL/L (135-145); TOTAL CARBON DIOXIDE 29.9 MMOL/L (24-32); TOTAL PROTEIN 6.5 G/DL (6.4-8.2); eCRCL 42 ML/MIN; eGFR 42 ML/MIN
[2024-03-17] MEDS ORDERED: AMOX-117 PO (15:17)
== END 2024-03-17 15:55 | disposition home or self-care (01) ==
LOC: ER 13:32
DX: K57.32 Diverticulitis of large intestine without perforation or abscess without bleeding (principal); I48.91 Unspecified atrial fibrillation; I10 Essential (primary) hypertension; E11.9 Type 2 diabetes mellitus without complications; Z98.890 Other specified postprocedural states; Z85.89 Personal history of malignant neoplasm of other organs and systems; Z79.899 Other long term (current) drug therapy; Z79.2 Long term (current) use of antibiotics; Z79.82 Long term (current) use of aspirin
CPT/HCPCS: 36415; 74176; 80053; 83690; 84145; 85025; 99284

== ENCOUNTER 2024-09-11 22:58 | Emergency (ER) | payer MEDICARE, BC ==
[~2024-09-11] VITALS: Ht 188 cm; Wt 69.5 kg
[~2024-09-11 22:58] MED LIST changes: -CIPR-429 PO; +CIPR-546 PO
[2024-09-12 00:14] LABS: BASOPHILS % (AUTO) 0.1 % (0-1); EOSINOPHILS % (AUTO) 0 % (0-6); HEMATOCRIT 39.3 % (42.0-52.0); HEMOGLOBIN 13.5 g/dl (14.0-17.9); LYMPHOCYTES # (AUTO) 0.5 X10'3 (1.1-4.8); LYMPHOCYTES % (AUTO) 4.5 % (21-51); MEAN CORPUSCULAR HEMOGLOBIN 31.8 PG (27.0-31.0); MEAN CORPUSCULAR HGB CONC 34.4 g/dL (33.0-36.5); MEAN CORPUSCULAR VOLUME 92.3 FL (78-98); MEAN PLATELET VOLUME 8.7 FL (7.4-10.4); MONOCYTES # (AUTO) 0.7 X10'3 (0-0.9); MONOCYTES % (AUTO) 6.3 % (2-12); NEUTROPHILS # (AUTO) 9.6 X10'3 (1.8-7.7); NEUTROPHILS % (AUTO) 89.1 % (42-75); PLATELET COUNT 163 X10'3 (140-440); RED BLOOD COUNT 4.25 X10'6 (4.70-6.10); RED CELL DISTRIBUTION WIDTH 14.5 % (11.5-14.5); WHITE BLOOD COUNT 10.8 X10'3 (4.5-11.0)
[2024-09-12 00:24] LABS: ALBUMIN 3.4 G/DL (3.4-5.0); ANION GAP 8 (8-16); BLOOD UREA NITROGEN 46 MG/DL (7-18); BUN/CREATININE RATIO 25.4 (10.0-20.0); CALCIUM 9.3 MG/DL (8.5-10.1); CHLORIDE 101 MMOL/L (99-107); CREATININE 1.81 MG/DL (0.60-1.10); POTASSIUM 4.7 MMOL/L (3.5-5.1); SODIUM 134 MMOL/L (135-145); TOTAL CARBON DIOXIDE 24.9 MMOL/L (24-32); eCRCL 31 ML/MIN; eGFR 36 ML/MIN
[2024-09-12 00:41] LABS: GLUCOSE 402 MG/DL (70-104)
[2024-09-12 02:22] VITALS: BP 142/80; PULSE 68; RESP 14; TEMP 96.3; O2SAT 96
== END 2024-09-12 01:30 | disposition home or self-care (01) ==
LOC: ER 22:59
DX: E11.65 Type 2 diabetes mellitus with hyperglycemia (principal); I10 Essential (primary) hypertension; I48.91 Unspecified atrial fibrillation; Z98.890 Other specified postprocedural states; Z79.82 Long term (current) use of aspirin
CPT/HCPCS: 36415; 80048; 82948; 85025; 99283

== ENCOUNTER 2024-09-14 18:33 | Emergency (ER) | payer MEDICARE, BC ==
[~2024-09-14] VITALS: Ht 188 cm; Wt 87.3 kg
[2024-09-14 20:44] VITALS: BP 142/89; PULSE 78; RESP 16; TEMP 98; O2SAT 97
== END 2024-09-14 20:46 | disposition home or self-care (01) ==
LOC: ER 18:34
DX: S09.90XA Unspecified injury of head, initial encounter (principal); E11.9 Type 2 diabetes mellitus without complications; I10 Essential (primary) hypertension; I48.91 Unspecified atrial fibrillation; Z79.82 Long term (current) use of aspirin; W18.39XA Other fall on same level, initial encounter; Y93.73 Activity, racquet and hand sports; Y92.89 Other specified places as the place of occurrence of the external cause; Y99.8 Other external cause status
CPT/HCPCS: 70450; 70486; 72125; 99284

== ENCOUNTER 2024-12-01 00:09 | Emergency (ER) | payer MEDICARE, BC ==
[~2024-12-01] VITALS: Ht 188 cm; Wt 86.9 kg
[2024-12-01] MEDS ORDERED: HYDR-3965 PO (02:29)
[2024-12-01] MEDS: HYDROcodone/acetaminophen 10/325mg tab PO ONE (02:39)
--- NOTE | 2024-12-01 03:08 | Physician Documentation ---
History of Present Illness ~ Chief Complaint: Back Pain Stated Complaint: BACK PAIN Time Seen by MD: 02:20 Primary Medical Doctor: Rony King Source: patient Mode of Arrival: POV Exam Limitations: no limitations HPI Chief Complaint: Low back pain Caveat: None Independent Historians: History of Present Illness: Patient is an 84-year-old man that fell a week and a half ago and then again approximately one week ago. Since then he has been having low back pain that is central and radiates outward. Pain is described as sharp. Pain is severe 8/10 and is keeping him awake at night. Patient has been taking Advil/Motrin for the pain which has helped. Pain is currently 4/10. Patient describes the pain as burning and radiating outward bilaterally. Patient denies any lower extremity weakness and denies any other neurological symptoms. Patient is on Eliquis. Review of systems: All systems were reviewed and are negative except for what is indicated in the history of present illness. Past Medical History: Polio, atrial fibrillation, HTN, type 2 diabetes Past Surgical History: Noncontributory Social History: , no tobacco use, no alcohol use, no drug use Medications: Reviewed as documented Nursing Notes Allergies: Reviewed as documented in Nursing Notes Medication Reconciliation Allergies: Coded Allergies: No Known Allergies (Unverified , 09/14/24) Scheduled Amiodarone Hcl (Cordarone), 1 TAB PO DAILY, (Reported) Apixaban (Eliquis), 1 TAB PO BID, (Reported) Aspirin (Aspir 81), 1 TAB PO DAILY, (Reported) Carvedilol (Carvedilol), 1 TAB PO BID, (Reported) Ciprofloxacin Hcl (Ciprofloxacin Hcl), 1 TABLET PO BID Doxazosin Mesylate (Doxazosin Mesylate), 1 TAB PO BID, (Reported) Dulaglutide (Trulicity), 1.5 MG SQ Q7D, (Reported) Gabapentin (Neurontin), 1 CAP PO HS, (Reported) Irbesartan (Irbesartan), 1 TAB PO DAILY, (Reported) Ketoconazole (Ketoconazole), 1 APPLIC TOP DAILY, (Reported) Metronidazole* (Flagyl*), 1 TAB PO Q8H Montelukast Sodium (Montelukast Sodium), 1 TAB PO DAILY, (Reported) Phenazopyridine Hcl (Pyridium tablet), 1 TAB PO Q8H Rosuvastatin Calcium (Rosuvastatin Calcium), 1 TAB PO HS, (Reported) Saccharomyces Boulardii (Florastor), 500 MG PO BID Scheduled PRN Hydrocodone Bit/Acetaminophen 5/325 MG ([place] 5/325 MG), 1 TAB PO TID PRN for severe pain (7-10) Past Medical History Past Medical History: Arrhythmia, Atrial Fibrillation, Hypertension, Diverticulitis, Diverticulosis, Hemorrhoids, Diabetes, *CANCER* Past Surgical History: orthopedic surgeries Smoking Status: Unknown if ever smoked Alcohol Use: None Drug Use: none Lives with: Family Lives In: Home Review of Systems All Other Systems at this time: Reviewed and Negative ROS Patient denies any other acute symptoms other than above. All other systems are negative Physical Exam Physical Exam Vital Signs: RN Vital Signs have been reviewed: Yes, Temperature: 97.8, Source: Temporal, Heart Rate: 72, Respiratory Rate: 16, BP: 189/79, Pulse Oximetry: 98, Weight: 86.900 Oxygen Flow Rate: 0 Pulse Oximetry Reflects: adequate oxygenation Physical Exam General Appearance: Mild distress HEENT: Normal OP, moist oral mucosa, PERRL, EOMI Neck: supple, normal ROM, trachea midline Pulmonary: No respiratory distress, CTA, BS equal Cardiac: RRR, no murmur, rub or gallop, GI: nondistended, soft, nontender, normal bowel sounds, no guarding, no rebound Back: Outwardly normal-appearing, decreased range of motion, no focal tenderness Extremities: normal ROM, no swelling, non-tender Skin: intact, dry, warm, no rashes Neuro: AAOx3, speech is clear, no focal motor weakness Psych: normal affect, good eye contact, no apparent hallucination, normal speech Progress Results/Orders Results/Orders Orders - PADMINI MORENO MD Ct Lumbar Spine (12/01/24 02:58) Completed Orders - PADMINI MORENO MD Ct Lumbar Spine (12/01/24 02:58) Hydrocodone/Apap 10/325 ([place] 10/325mg (12/01/24 02:30) Medications Received in ER Medications (Trade) Dose Ordered Sig/Karl Route PRN Reason Start Time Stop Time Status Last Admin Dose Admin ([place] 10/325mg tab) 1 tab ONCE ONCE PO 12/01/24 02:30 12/01/24 02:31 DC 12/01/24 02:39 1 TAB Vital Signs 12/01/24 00:14 Temp 97.8 Pulse 72 Resp 16 B/P (MAP) 189/79 Pulse Ox 98 O2 Flow Rate 0 Medical Decision Making Findings Differential diagnosis includes but is not limited to: Lumbar vertebral fracture, sacral fracture, contusion, lumbar strain CT lumbar spine without IV contrast, indication: Fall, low back pain Impression: Emergency department course/medical decision-making: Patient is an 84-year-old man that fell a couple of times 1-1-1/2 weeks ago resulting in low back pain. Patient has not been able to get any pain relief despite the use of Motrin and Tylenol and visiting a chiropractor. Patient is neurologically intact. Patient is given [place] 10 mg p.o. for pain. Consultation/communications: Departure Referrals: NO PRIMARY CARE PROVIDER (PCP) Prescriptions Hydrocodone Bit/Acetaminophen 5/325 MG ([place] 5/325 MG) 5 Mg/325 Mg Tablet 1 TAB PO TID PRN for severe pain (7-10) for 5 Days, #15 TAB Prov: INDIO WEBBER 12/01/24 Signature Scribe Signature: No scribe Attestation: No scribe PADMINI MORENO MD Dec 01, 2024 03:08
[2024-12-01 04:39] VITALS: BP 169/76; PULSE 86; RESP 18; TEMP 98; O2SAT 98
--- NOTE | 2024-12-01 04:51 | RADIOLOGY REPORT ---
CLINICAL INDICATION: traumatic back pain TECHNIQUE: CT of the lumbar spine was performed without intravenous contrast. Sagittal and coronal re formatted images are provided. All CT scans at this medical facility are performed using dose modula tion techniques as appropriate to a performed exam including the following: Automated exposure contro l was utilized; adjustment of the MA and/or KV according to patient size; and use of iterative recons truction technique. COMPARISON: CT scan of the abdomen pelvis dated 12/11/2023. CT Dose: CTDI volume is 30.6 mGy. Dose-length product is 381.2 mGy*cm FINDINGS: The alignment and curvature of the lumbar spine are preserved. Mild L1 vertebral body height loss whi ch is new since the prior CT from 12/11/2023 suggesting possible acute superior endplate fracture, dey perimposed on a Schmorl's node. No osseous retropulsion. L1 height loss is less than 10%. Vertebral b jaimee heights are otherwise maintained. Multilevel intervertebral disc space narrowing. Mild spinal st enosis at L3-L4. Moderate to severe bilateral neural foraminal stenosis at L4-L5 and L5-S1. The prevertebral soft tissues are unremarkable. Paraspinal muscles are also within normal limits. Sigmoid diverticulosis without acute diverticulitis. IMPRESSION: 1. Findings suspicious for acute L1 superior endplate fracture. Less than 10 % L1 vertebral body hei ght loss new since prior CT abdomen pelvis from 12/11/2023. No osseous retropulsion. 2. Multilevel lumbar spondylosis. 3. Sigmoid diverticulosis without acute diverticulitis.
== END 2024-12-01 04:41 | disposition home or self-care (01) ==
LOC: ER 00:11
DX: M54.50 Low back pain, unspecified (principal); E11.9 Type 2 diabetes mellitus without complications; I10 Essential (primary) hypertension; I48.91 Unspecified atrial fibrillation; Z79.82 Long term (current) use of aspirin
CPT/HCPCS: 72131; 99284

== ENCOUNTER 2024-12-08 01:56 | Emergency (ER) | payer MEDICARE, BC ==
[~2024-12-08] VITALS: Ht 188 cm; Wt 87.7 kg
[2024-12-08 01:59] VITALS: BP 176/83; PULSE 66; RESP 16; TEMP 98.2; O2SAT 97
--- NOTE | 2024-12-08 02:21 | Physician Documentation ---
History of Present Illness ~ Chief Complaint: Hypertension Stated Complaint: HIGH BP Time Seen by MD: 02:09 Primary Medical Doctor: Rony King Patient presents to the emergency room with chief complaint of elevated blood pressures. Patient began a new blood pressure medication today by his primary care doctor. He was seen his primary care doctor for back pain for which they suspect compression fracture and he is actively taking [place]. Patient states that he feels like his blood pressure was elevated at the office because he is having increased pain with his bag. He checked his blood pressure tonight and saw that has 186 and called the advice nurse who told him to come into the emergency room to be evaluated. No other complaints Medication Reconciliation Allergies: Coded Allergies: No Known Allergies (Unverified , 09/14/24) Scheduled Amiodarone Hcl (Cordarone), 1 TAB PO DAILY, (Reported) Apixaban (Eliquis), 1 TAB PO BID, (Reported) Aspirin (Aspir 81), 1 TAB PO DAILY, (Reported) Carvedilol (Carvedilol), 1 TAB PO BID, (Reported) Ciprofloxacin Hcl (Ciprofloxacin Hcl), 1 TABLET PO BID Doxazosin Mesylate (Doxazosin Mesylate), 1 TAB PO BID, (Reported) Dulaglutide (Trulicity), 1.5 MG SQ Q7D, (Reported) Gabapentin (Neurontin), 1 CAP PO HS, (Reported) Irbesartan (Irbesartan), 1 TAB PO DAILY, (Reported) Ketoconazole (Ketoconazole), 1 APPLIC TOP DAILY, (Reported) Metronidazole* (Flagyl*), 1 TAB PO Q8H Montelukast Sodium (Montelukast Sodium), 1 TAB PO DAILY, (Reported) Phenazopyridine Hcl (Pyridium tablet), 1 TAB PO Q8H Rosuvastatin Calcium (Rosuvastatin Calcium), 1 TAB PO HS, (Reported) Saccharomyces Boulardii (Florastor), 500 MG PO BID Discontinued Medications Hydrocodone Bit/Acetaminophen 5/325 MG ([place] 5/325 MG), 1 TAB PO TID PRN for se scotty pain (7-10) Discontinued Reason: Auto Discontinued Past Medical History Past Medical History: Arrhythmia, Atrial Fibrillation, Hypertension, Diverticulitis, Diverticulosis, Hemorrhoids, Diabetes, *CANCER* Past Surgical History: orthopedic surgeries Alcohol Use: None Drug Use: none Lives with: Family Lives In: Home Review of Systems ROS All review of systems negative except as per HPI Physical Exam Vital Signs: Temperature: 98.2, Heart Rate: 66, Respiratory Rate: 16, BP: 176/83, Pulse Oximetry: 97, Weight: 87.730 Oxygen Flow Rate: 0 Physical Exam General: Patient is awake, alert, oriented x4 in no acute distress and well appearing.~ Head: Normocephalic and atraumatic. Eyes: Conjunctival normal. EOMI. PERRL. ENT: Mucous membranes moist. Neck: Supple, trachea is midline. Chest: Clear to auscultation bilaterally without rales, rhonchi, or wheezes. There is no accessory muscle use or retractions. Cardiac: RRR without murmurs, gallops, or rubs. Neuro: Cranial nerves II-XII grossly intact. No focal neuro deficits. Patient ambulating without difficulty. Progress Results/Orders Results/Orders Vital Signs 12/08/24 01:59 Temp 98.2 Pulse 66 Resp 16 B/P (MAP) 176/83 Pulse Ox 97 O2 Flow Rate 0 Medical Decision Making Findings Patient presents to the emergency room as directed by advice nurse for elevated blood pressures. Differentials include but are not limited to uncontrolled hypertension, hypertensive emergency, anxiety, back pain. Patient's blood pressure is not 180 and I do not feel he requires emergent labs as I do not suspect hypertensive emergency. Had long discussion with patient regarding blood pressure medications and the need to control his pain for which he does have a good point that his blood pressure is likely elevated because of his back pain. The need to follow up with his doctor discussed and he is comfortable with not doing in any additional labs or imaging. ER precautions regarding hypertensive emergency discussed. Departure Disposition: HOME / SELF CARE / HOMELESS Impression: Primary Impression: Uncontrolled hypertension Condition: Fair Discharge Instructions: Hypertension, Adult Additional Instructions: Follow up with your doctor as you discussed Referrals: NO PRIMARY CARE PROVIDER (PCP) Signature Scribe Signature: No scribe Attestation: The note accurately reflects work and decisions made by me.Gus Cm MD 12/08/24 02:40 GUS CM MD Dec 08, 2024 02:21
== END 2024-12-08 03:08 | disposition home or self-care (01) ==
LOC: ER 01:57
DX: I10 Essential (primary) hypertension (principal); E11.9 Type 2 diabetes mellitus without complications; I48.91 Unspecified atrial fibrillation; Z79.899 Other long term (current) drug therapy; Z79.82 Long term (current) use of aspirin
CPT/HCPCS: 99281; 99282